=== PATIENT | female | born 1945 | race Caucasian/White ===

== ENCOUNTER → 2017-05-07 | Outpatient (CLI) | payer OTHER ==
--- NOTE | 2017-05-07 10:42 | REP ---
LEFT BREAST MAMMOGRAM: HISTORY: Right breast cancer and mastectomy with radiation therapy. MLO and CC views of the left breast are performed as well as an axillary CC view. Comparison made with prior studies most recent of which is 04/01/2016. There is stable postsurgical architectural distortion in the lateral left breast. There is no new mass or suspicious clusters of microcalcifications. Benign calcifications are seen in the left breast. There are multiple metallic clips seen in the axillary region. IMPRESSION: ACR 2 benign. Stable postsurgical changes in the left breast. No new mass or clustered microcalcifications. Patient has status post right mastectomy. Suggest followup mammogram in 1 year. This mammogram was interpreted with the aid of an FDA-approved computer-aided detection system. The patient states she/he had a clinical breast exam in 10/2016. The patient letter being requested is M1. Signed by Del Tan MD 05/07/2017 05:19 P
== END ==
LOC: M RAD 08:33
PROVIDERS: ATTEND Internal Medicine Medical Oncology
DX: Z12.31 Encounter for screening mammogram for malignant neoplasm of breast (principal)